=== PATIENT | female | born 1980 | race Caucasian/White ===

== ENCOUNTER 2018-09-25 16:35 | Emergency (ER) | payer MEDICARE ==
[~2018-09-25] VITALS: Ht 167.6 cm; Wt 68.0 kg
[2018-09-25] MEDS ORDERED: BACTRIM DS TAB1 EACH PO (17:17)
[2018-09-25] MEDS ORDERED: KEFLEX500 M1 PO (17:17)
[2018-09-25 17:36] VITALS: BP 121/68
== END 2018-09-25 17:37 | disposition home or self-care (01) ==
LOC: M.ERS 16:35
DX: L73.9 Follicular disorder, unspecified (principal); N76.2 Acute vulvitis; F41.9 Anxiety disorder, unspecified; F32.9 Major depressive disorder, single episode, unspecified; Z88.5 Allergy status to narcotic agent; Z88.1 Allergy status to other antibiotic agents

== ENCOUNTER 2019-02-19 01:38 | Inpatient (IN) | payer MEDICARE ==
[~2019-02-19] VITALS: Ht 167.6 cm; Wt 62.6 kg
[~2019-02-19 01:38] MED LIST: BACTRIM DS TAB1 EACH PO; KEFLEX500 M1 PO
[2019-02-19 01:39] VITALS: BP 111/63
[2019-02-19 02:23] LABS: ABSOLUTE LYMPHOCYTES 1.3 thou/uL (0.8-5.3); ABSOLUTE MONOCYTES 0.3 thou/uL (0.0-1.2); ABSOLUTE NEUTROPHILS 4.8 thou/uL (1.6-8.1); BASOPHILS 0.4 %; EOSINOPHILS 0.3 %; HEMATOCRIT 40.4 % (37.0-47.0); HEMOGLOBIN 13.7 gm/dL (12.0-15.0); LYMPHOCYTES 19.5 %; MCH 31.6 pg (26.0-34.0); MONOCYTES 4.4 %; MPV 8.8 fl. (7.2-11.1); NUCLEATED RBCS 0 /100WBC; PLATELET COUNT* 231 thou/uL (150-400); POLYS 75.4 %; RBC 4.34 mil/uL (4.20-5.00); RDW-CV 13.9 % (10.5-14.5); WBC 6.4 thou/uL (4.0-11.0)
[2019-02-19 02:28] LABS: URINE BILIRUBIN NEGATIVE (Negative); URINE BLOOD TRACE (Negative); URINE CLARITY CLEAR; URINE COLOR YELLOW; URINE GLUCOSE-RANDOM NEGATIVE (Negative); URINE KETONES NEGATIVE (Negative); URINE LEUKOCYTES-REFLEX NEGATIVE (Negative); URINE NITRITE-REFLEX NEGATIVE (Negative); URINE PROTEIN NEGATIVE (Negative); URINE UROBILINOGEN 0.2 E.U./dl (0.2-1.0)
[2019-02-19 02:31] LABS: ALBUMIN 3.6 g/dL (3.4-5.0); CALCIUM 9.1 mg/dL (8.5-10.1); CREATININE 0.9 mg/dL (0.6-1.3); POTASSIUM 4.3 mmol/L (3.5-5.1); TOTAL BILIRUBIN 0.3 mg/dL (<0.1-1.0); TOTAL PROTEIN 7.6 g/dL (6.4-8.2)
[2019-02-19 02:33] LABS: AMP/METHAMP Negative (Negative); BARBITURATES Negative (Negative); BENZODIAZEPINES Negative (Negative); COCAINE Negative (Negative); METHADONE Negative (Negative); OPIATES Negative (Negative); PCP Negative (Negative); THC POSITIVE (Negative)
[2019-02-19 08:45] VITALS: BP 92/54
--- NOTE | 2019-02-19 08:55 | NUR ---
PT TRAY PROVIDED FOR BREAKFAST
--- NOTE | 2019-02-19 12:07 | NUR ---
DC'D LT A/C IV PER PT REQUEST FOR COMFORT, RESTARTED IN RT HAND
[2019-02-19 12:45] VITALS: BP 105/51
--- NOTE | 2019-02-19 16:10 | NUR ---
PT TO MRI
[2019-02-19 16:15] VITALS: BP 100/55
[2019-02-19 18:42] VITALS: BP 106/57
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
[2019-02-20] VITALS (7 sets, daily range): BP systolic 95–113; BP diastolic 43–64
[2019-02-20 05:27] LABS: ABSOLUTE MONOCYTES 0.4 thou/uL (0.0-1.2); ABSOLUTE NEUTROPHILS 4.5 thou/uL (1.6-8.1); BASOPHILS 0.4 %; EOSINOPHILS 0.4 %; HEMATOCRIT 36.5 % (37.0-47.0); HEMOGLOBIN 12.5 gm/dL (12.0-15.0); LYMPHOCYTES 28.3 %; MCH 31.9 pg (26.0-34.0); MCHC 34.1 g/dL (28.0-37.0); MCV 93.4 fL (80.0-100.0); MONOCYTES 5.9 %; MPV 9.1 fl. (7.2-11.1); NUCLEATED RBCS 0 /100WBC; PLATELET COUNT* 190 thou/uL (150-400); RBC 3.91 mil/uL (4.20-5.00); RDW-CV 13.9 % (10.5-14.5); WBC 6.9 thou/uL (4.0-11.0)
--- NOTE | 2019-02-20 05:32 | NUR ---
SLEPT WELL TONIGHT. INDEPENDENT BRP WITH STEADY GAIT. NO SEIZURE ACTIVITY NOTED. TELEMETRY CONT TO SHOW SR. NO CHANGE IN ASSESSMENT. HS GOALS OF REST AND SAFETY ACHIEVED. HOURLY ROUNDING OBSERVED.
[2019-02-20 05:40] LABS: CALCIUM 8.6 mg/dL (8.5-10.1); CREATININE 0.8 mg/dL (0.6-1.3); POTASSIUM 3.4 mmol/L (3.5-5.1)
--- NOTE | 2019-02-20 10:03 | EKG ---
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1980 Requested By: Patricia Simon Order Number: [id number] Reading MD: Brennon Garcia Measurements Intervals Arma Rate: 66 P: -32 DE: 183 QRS: -12 QRSD: 83 T: 126 QT: 471 QTc: 494 Interpretive Statements Sinus rhythm Low voltage, extremity leads Nonspecific T abnormalities, lateral leads Borderline prolonged QT interval Baseline wander in lead(s) V3 No previous ECG available for comparison Electronically Signed On 02-20-2019 10:03:04 CDT by Brennon Garcia [email or web address] <ELECTRONICALLY SIGNED> By: Brennon Garcia MD, FAC 02/20/19 1003 [id number] [id number] Brennon Garcia MD, [facility] /EPI
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
[2019-02-20] MEDS ORDERED: ATIVAN0.5 MG PO (12:35)
[2019-02-20] MEDS ORDERED: SYNTHROID50 MCG PO (12:35)
--- NOTE | 2019-02-20 13:33 | NUR ---
PT D/C'D TO HOME. SPOKE WITH DR HOOK PT NOT TO DRIVE FOR 6 MONTHS. SHE IS TO DO FOLLOW-UP TESTING AT [facility].
--- NOTE | 2019-02-20 13:34 | NUR ---
PT D/C'D TO HOME. ALL CONSULTS OK WITH D/C. EDUCATION GIVEN RE FOLLOW-UPS. MEDICATIONS, AND DRS ORDERS. SCRIPTS GIVEN. PT TO FOLLOW UP AT [facility]. SIGNIFIFCANT OTHER AND PT TOLD NO DRIVING FOR 6 MONTHS. PT STATED SHE HAD NOT DRIVEN IN 10 YEARS. IV AND CARDIAC MONITER D/C'D. ALL BELONGINGS PACKED UP AND LEFT WITH PT ACCOMPANIED BY STAFF AND SIG OTHER.
[2019-02-20 14:11] LABS: THYROID PEROXIDASE (TPO) AB < 6 IU/mL (0-34)
--- NOTE | 2019-02-21 18:03 | CON ---
[address] [address] CONSULTATION Name: DEVEN BELLAMY Room: [address] IN M.R.#: [id number] Admission: 02/19/19 Attend Phys: Kurt Hale Discharge: 02/20/19 Date of : 78 Report #: [id number] THIS REPORT FOR: //name// CC: [facility] physician/PCP Danilo Perales DATE OF SERVICE: 02/19/2019 HISTORY OF PRESENT ILLNESS: This is a 38-year-old female patient who was evaluated by me for seizure. The patient indicates that she does not remember anything about the seizure. She indicates that she was sleeping and started having a seizure. It was witnessed by her significant other. The patient was confused after that. REVIEW OF SYSTEMS: Indicate that she has a history of anxiety. She said she gets panic attacks. She does not believe she was any more nervous than usual. She feels back to her baseline. She never had seizure before. She does not have any new medication, which has been prescribed to her. She does have some problem with thyroid. She does smoke cigarettes and marijuana. REVIEW OF SYSTEMS: She was not complaining of any new eye, ENT, cardiac, respiratory, GI, , musculoskeletal, constitutional, dermatological, hematological, psychiatric, throat or allergic symptom associated with present symptomatology. PAST MEDICAL HISTORY: Negative for seizure. FAMILY HISTORY: Negative for congenital epilepsy. SOCIAL HISTORY: She does not drink alcohol, but she smokes both cigarettes and marijuana. PHYSICAL EXAMINATION: Indicate she is nervous and anxious. She is alert, responsive, able to follow simple and complex command. Speech, concentration, fund of knowledge and memory is at her baseline. Cranial nerve examination 2-12 looks unremarkable. Neuromuscular examination is symmetrical. Full strength, sensation, reflexes and tone. Cardiac examination is unremarkable. Her pulses are palpable. No cardiac arrhythmias were noticed. Blood pressure is 92/54, respiration is 14, pulse is 61, temperature is 97.9. LABORATORY DATA: Her white count is normal and her TSH is very high. She did have a CT scan of the head, which appear unremarkable. IMPRESSION AND PLAN: The patient presents with a history of seizure. Her [place] [address] CONSULTATION Name: DEVEN BELLAMY Room: [address]#: [id number] Admission: 02/19/19 Attend Phys: Kurt Hale Discharge: 02/20/19 Date of : 78 Report #: [id number] I discussed the situation with the patient. I discussed with her that I do not know what the etiology of her symptom is and sometime we do not find any etiology. I discussed with her that I would like to get an MRI of the brain done. I would like to do it with and without contrast. I discussed the indication, potential complication, and alternatives in that regard. She wants to proceed with it. Her test is negative. We will get an EEG done. This patient will need seizure precaution for 6 months and she will not be able to drive during that time. All of it was discussed with the patient in detail. She understands that and she wants to follow this plan. <ELECTRONICALLY SIGNED> By: Elliott Lyons MD 02/21/19 1803 1255 [id number] Lyons MD /nt
--- NOTE | 2019-02-21 18:03 | EEG ---
[address] [address] EEG STUDY REPORT Name: DEVEN BELLAMY Room: [address] IN M.R.#: [id number] Admission: 02/19/19 Attend Phys: Kurt Hale Discharge: 02/20/19 Date of : 78 Report #: [id number] THIS REPORT FOR: //name// CC: [facility] physician/PCP Danilo Perales DATE OF SERVICE: 02/19/2019 This patient is being evaluated for seizure. EEG was done to evaluate that further. EEG was done by placing the electrode by standard 10-20 system of electrode placement. Both referential and sequential montages were used for recording. Background activity in this patient's EEG is about 10 Hz and 40 microvolt. The patient went to sleep and that was associated with bilateral slowing and vertex sharp waves. Photic stimulation was unremarkable. Throughout the record, no active epileptiform activity was noticed. IMPRESSION: EEG is masked by a lot of artifact. However, it does not appear to be showing any active epileptiform activity. Thank you very much for this referral. <ELECTRONICALLY SIGNED> By: Elliott Lyons MD 02/21/19 1803 1514 [id number] Lyons MD /nt
== END 2019-02-20 13:45 | disposition home or self-care (01) | DRG 101 ==
LOC: M.ERS 01:38 → M.TBA-ER 03:38 → M.2W 03:38
PROVIDERS: Emergency Medicine; Family Medicine; ADMIT Internal Medicine
DX: R56.9 Unspecified convulsions (principal); F41.9 Anxiety disorder, unspecified; F32.9 Major depressive disorder, single episode, unspecified; F43.10 Post-traumatic stress disorder, unspecified; F60.9 Personality disorder, unspecified; F17.210 Nicotine dependence, cigarettes, uncomplicated; I95.9 Hypotension, unspecified; E02 Subclinical iodine-deficiency hypothyroidism; Z88.5 Allergy status to narcotic agent; Z88.1 Allergy status to other antibiotic agents; Z79.899 Other long term (current) drug therapy

== ENCOUNTER 2019-04-19 06:00 | Inpatient (IN) | payer MEDICARE ==
[~2019-04-19] VITALS: Ht 167.6 cm; Wt 65.8 kg
[~2019-04-19 06:00] MED LIST changes: +ATIVAN0.5 MG PO; +SYNTHROID50 MCG PO
[2019-04-19 06:54] LABS: URINE BLOOD 3+ (Negative); URINE CLARITY CLEAR; URINE COLOR BROWN; URINE GLUCOSE-RANDOM NEGATIVE (Negative); URINE KETONES NEGATIVE (Negative); URINE PROTEIN 2+ (Negative); URINE SPECIFIC GRAVITY >= 1.030 (1.005-1.030); URINE UROBILINOGEN 0.2 E.U./dl (0.2-1.0)
[2019-04-19 06:56] LABS: ICTOTEST (BILI CONFIRMATORY) Negative (Negative); URINE BILIRUBIN 1+ (Negative); URINE LEUKOCYTES-REFLEX 2+ (Negative); URINE NITRITE-REFLEX POSITIVE (Negative)
[2019-04-19 07:10] LABS: ABSOLUTE LYMPHOCYTES 0.9 thou/uL (0.8-5.3); ABSOLUTE MONOCYTES 0.4 thou/uL (0.0-1.2); ABSOLUTE NEUTROPHILS 7.6 thou/uL (1.6-8.1); BASOPHILS 0.3 %; EOSINOPHILS 0.4 %; HEMATOCRIT 38.3 % (37.0-47.0); HEMOGLOBIN 12.8 gm/dL (12.0-15.0); LYMPHOCYTES 10.2 %; MCH 31.3 pg (26.0-34.0); MCHC 33.5 g/dL (28.0-37.0); MCV 93.4 fL (80.0-100.0); MONOCYTES 4.7 %; MPV 8.8 fl. (7.2-11.1); NUCLEATED RBCS 0 /100WBC; PLATELET COUNT* 195 thou/uL (150-400); POLYS 84.4 %; RDW-CV 13.5 % (10.5-14.5)
[2019-04-19 07:11] LABS: AMP/METHAMP Negative (Negative); BARBITURATES Negative (Negative); BENZODIAZEPINES Negative (Negative); COCAINE Negative (Negative); METHADONE Negative (Negative); OPIATES Negative (Negative); PCP Negative (Negative); THC POSITIVE (Negative)
[2019-04-19 07:13] LABS: MUCUS >6 Heavy strn/LPF (None Seen); URINE RBC >20 Many /HPF (0-2)
[2019-04-19 07:14] LABS: CASTS None Seen /LPF (None Seen); CRYSTALS None Seen /LPF (None Seen); SQUAMOUS >10 Many /LPF (0-3)
[2019-04-19 07:21] LABS: CALCIUM 8.1 mg/dL (8.5-10.1); CREATININE 0.8 mg/dL (0.6-1.3); POTASSIUM 3.8 mmol/L (3.5-5.1)
[2019-04-19 07:26] LABS: ALBUMIN 3.3 g/dL (3.4-5.0); MAGNESIUM 1.9 mg/dL (1.8-2.4); TOTAL BILIRUBIN 0.4 mg/dL (<0.1-1.0); TOTAL PROTEIN 7.3 g/dL (6.4-8.2)
[2019-04-19 09:58] VITALS: BP 98/61
[2019-04-19 16:30] VITALS: BP 109/52
--- NOTE | 2019-04-19 16:56 | 2DMMODE ---
[place] [address] 2 D/M-MODE ECHOCARDIOGRAM Name: JOSESITODEVEN M Room: [facility] ADM IN [facility]#: [id number] Admission: 04/19/19 Attend Phys: Sawyer Peoples MD Discharge: Date of : 78 Date of Service: 04/19/19 1656 Report #: [id number] THIS REPORT FOR: //name// APPROVED REPORT Study performed: 04/19/2019 15:42:18 EXAM: Comprehensive 2D, Doppler, and color-flow Echocardiogram Patient Location: In-Patient Room #: [facility] Status: routine BSA: 1.74 HR: 54 bpm BP: 98/61 mmHg Rhythm: NSR Other Information Study Quality: Good Indications seizures, aortic regurgitation 2D Dimensions IVSd: 9.25 (7-11mm) LVOT Diam: 23.11 (18-24mm) LVDd: 43.50 mm PWd: 9.76 (7-11mm) Ascending Ao: 32.98 (22-36mm) LVDs: 25.17 (25-40mm) Aortic Root: 33.35 mm Volumes Left Atrial Volume (Systole) LA ESV Index: 19.90 mL/m2 Aortic Valve AoV Peak Wyatt.: 1.67 m/s AO Peak Gr.: 11.13 mmHg LVOT Max P.69 mmHg AO Mean Gr.: 6.08 mmHg LVOT Mean P.70 mmHg LVOT Max V: 0.96 m/s AO V2 VTI: 36.35 cm LVOT Mean V: 0.59 m/s RODOLFO (VTI): 2.79 cm2 LVOT V1 VTI: 24.14 cm Mitral Valve E/A Ratio: 1.87 MV Decel. Time: 186.47 ms MV E Max Wyatt.: 1.01 m/[place] [address] 2 D/M-MODE ECHOCARDIOGRAM Name: DEVEN BELLAMY Room: [address] IN .R.#: [id number] Admission: 04/19/19 Attend Phys: Sawyer Peoples MD Discharge: Date of : 78 Date of Service: 04/19/19 1656 Report #: [id number] PHT: 54.08 ms MVA (PHT): 4.07 cm2 TDI E/Lateral E': 6.31 E/Medial E': 6.73 Medial E' Wyatt.: 0.15 m/s Lateral E' Wyatt.: 0.16 m/s Pulmonary Valve PV Peak Wyatt.: 0.82 m/s PV Peak Gr.: 2.68 mmHg Tricuspid Valve RAP Estimate: 5.00 mmHg TR Peak Gr.: 23.43 mmHg RVSP: 28.00 mmHg PA Pressure: 28.00 mmHg Left Ventricle The left ventricle is normal size. There is normal LV segmental wall motion. There is normal left ventricular wall thickness. Left ventricular systolic function is normal. LVEF is 60-65%. The left ventricular diastolic function is normal. Right Ventricle The right ventricle is normal size. The right ventricular systolic function is normal. Atria The left atrium size is normal. The right atrium size is normal. Aortic Valve The aortic valve is normal in structure. Moderate aortic regurgitation. There is no aortic valvular stenosis. Mitral Valve The mitral valve is normal in structure. Mild mitral regurgitation. No evidence of mitral valve stenosis. Tricuspid Valve The tricuspid valve is normal in structure. Trace tricuspid regurgitation. No pulmonary hypertension. Pulmonic Valve The pulmonary valve is normal in structure. There is no pulmonic [place] [address] 2 D/M-MODE ECHOCARDIOGRAM Name: DEVEN BELLAMY Room: [address] IN [facility]#: [id number] Admission: 04/19/19 Attend Phys: Sawyer Peoples MD Discharge: Date of : 78 Date of Service: 04/19/19 1656 Report #: [id number] Great Vessels The aortic root is normal in size. IVC is normal in size and collapses >50% with inspiration. Pericardium There is no pericardial effusion. <Conclusion> The left ventricle is normal size. There is normal left ventricular wall thickness. Left ventricular systolic function is normal. LVEF is 60-65%. The left ventricular diastolic function is normal. Moderate aortic regurgitation. Mild mitral regurgitation. Trace tricuspid regurgitation. No pulmonary hypertension. IVC is normal in size and collapses >50% with inspiration. <ELECTRONICALLY SIGNED> By: Kwame Sanders MD, FACC 04/19/19 1656 55 55 Kwame Sanders MD, FACC /INF
[2019-04-19 20:00] VITALS: BP 126/58
[2019-04-20] VITALS: BP 93/51
[2019-04-20 04:00] VITALS: BP 103/56
[2019-04-20 08:00] VITALS: BP 104/62
[2019-04-20 16:00] VITALS: BP 104/62
[2019-04-20 16:07] VITALS: BP 119/36
[2019-04-20] MEDS ORDERED: CEFDINIR300 MG PO (16:10)
--- NOTE | 2019-04-21 16:32 | CON ---
[address] [address] CONSULTATION Name: DEVEN BELLAMY Room: [address] IN .R.#: [id number] Admission: 04/19/19 Attend Phys: Sawyer Peoples MD Discharge: 04/20/19 Date of : 78 Report #: [id number] THIS REPORT FOR: //name// CC: [facility] physician/PCP Sawyer Peoples DATE OF SERVICE: 04/19/2019 NEUROLOGY CONSULTATION: HISTORY OF PRESENT ILLNESS: The patient is a 38-year-old female who was admitted after having an event at night. The patient was unable to describe the event. She did call her and I was able to speak with him while he was at work. He states that she woke him up with her shaking. When he looked at her, her eyes were rolled back in her head, but every now and then she would look at him and then her eyes would roll back in her head. She was tremulous. She had deep gasping breaths and would grind her teeth. She did not bite her tongue. The entire episode lasted approximately 5-7 minutes and this time she seemed to come around more quickly than the last time. The first time this happened, the event lasted for approximately 15 minutes. The patient came to the hospital, she had an EEG, this was unremarkable. No antiepileptic medication was given to the patient. The patient tells me she has been having difficulty with her thyroid. At one point, she had been on as much as 175 mcg of thyroid medication. She is now on 75 mcg as her dose is being adjusted. The patient also has a history of anxiety and at one point had been on Depakote and Lamictal for anxiety control. PAST MEDICAL HISTORY: Anxiety, obsessive compulsive disorder, posttraumatic stress disorder, personality disorder, hypothyroidism. PAST SURGICAL HISTORY: Unremarkable. MEDICATIONS: Lorazepam 0.5 mg p.r.n., levothyroxine 75 mcg daily. ALLERGIES: CODEINE AND LEVOFLOXACIN. PHYSICAL EXAMINATION: VITAL SIGNS: Temperature 37.1, pulse rate 88, respiratory rate 13, blood pressure 98/61, bedside pulse oximetry 96% on room air. LABORATORY DATA: Hematology: White blood cell count 9, hemoglobin 12.8, hematocrit 38.2, MCV 93.4, platelet count 195,000. Urinalysis 2+ protein, 3+ blood, 1+ bilirubin, nitrite positive, leukocyte esterase 2+. Chemistry: [place] [address] CONSULTATION Name: DEVEN BELLAMY Room: [address]#: [id number] Admission: 04/19/19 Attend Phys: Sawyer Peoples MD Discharge: 04/20/19 Date of : 78 Report #: [id number] Sodium 140, potassium 3.8, chloride 107, carbon dioxide 23, BUN 4, creatinine 0.8, glucose 100. Liver functions normal. TSH is 31. Free T4 of 1. Prolactin pending. Toxicology screen positive for marijuana. IMAGING STUDIES: CT and MRI head dated 02/19/2019 are both unremarkable and EEG dated 02/19/2019 was also unremarkable. NEUROLOGIC: Cranial nerves 2-12 are grossly intact. Motor exam demonstrates symmetrical strength in all 4 extremities with tone and bulk normal. Reflexes are trace throughout. Plantar responses are flexor. Coordination demonstrates no evidence of dysmetria. IMPRESSION: This patient has had 2 events at night. At this point, I am not going to begin an antiepileptic medication without the electroencephalogram. If the electroencephalogram is unremarkable, then I would recommend video monitoring. The closest location is most likely [facility] on the [place]. At this point, there is no reason to repeat the MRI head as this was just done less than 2 months ago. I thank you for your kind referral of this patient and will continue to follow her with you. <ELECTRONICALLY SIGNED> By: Keily Willis DO 04/21/19 1632 1241 [id number] Willis DO /nt
--- NOTE | 2019-04-21 16:33 | EEG ---
[address] [address] EEG STUDY REPORT Name: DEVEN BELLAMY Room: [address] IN .R.#: [id number] Admission: 04/19/19 Attend Phys: Sawyer Peoples MD Discharge: 04/20/19 Date of : 78 Report #: [id number] THIS REPORT FOR: //name// CC: Berenice Peoples DESCRIPTION: The record consists of symmetric moderate amplitude 10 cycles per second posterior dominant rhythm, which is poorly formed and obscured by low amplitude 20-25 cycles per second activity predominant over the central head region. Muscle artifact is also noted. Stage 1 sleep is characterized by attenuation of the background record. Photic stimulation is nonactivating. No focal abnormalities or epileptiform discharges are noted. IMPRESSION: This is a normal adult awake to stage I sleep record. No abnormalities or epileptiform discharges are noted. <ELECTRONICALLY SIGNED> By: Keily Willis DO 04/21/19 1633 1426 [id number] Willis DO /nt
== END 2019-04-20 17:00 | disposition home or self-care (01) | DRG 101 ==
LOC: M.ERS 06:00 → M.TBA-ER 06:31 → M.2W 06:31
PROVIDERS: Personal Emergency Response Attendant; ADMIT Family Medicine
DX: G40.909 Epilepsy, unspecified, not intractable, without status epilepticus (principal); N39.0 Urinary tract infection, site not specified; F41.9 Anxiety disorder, unspecified; F32.9 Major depressive disorder, single episode, unspecified; E03.9 Hypothyroidism, unspecified; F43.10 Post-traumatic stress disorder, unspecified; F17.210 Nicotine dependence, cigarettes, uncomplicated; X58.XXXA Exposure to other specified factors, initial encounter; Y93.89 Activity, other specified; Y92.89 Other specified places as the place of occurrence of the external cause; Y99.8 Other external cause status; Z88.6 Allergy status to analgesic agent; Z88.1 Allergy status to other antibiotic agents

== ENCOUNTER 2019-06-26 17:37 | Emergency (ER) | payer MEDICARE ==
[~2019-06-26] VITALS: Ht 167.6 cm; Wt 63.0 kg
[~2019-06-26 17:37] MED LIST changes: +CEFDINIR300 MG PO
[2019-06-26 18:22] LABS: HEMATOCRIT 41.9 % (37.0-47.0); HEMOGLOBIN 14.1 gm/dL (12.0-15.0); MCH 30.9 pg (26.0-34.0); MCHC 33.6 g/dL (28.0-37.0); MCV 92.1 fL (80.0-100.0); MPV 8.5 fl. (7.2-11.1); NUCLEATED RBCS 0 /100WBC; PLATELET COUNT* 240 thou/uL (150-400); RBC 4.56 mil/uL (4.20-5.00); RDW-CV 13.3 % (10.5-14.5)
[2019-06-26 18:27] LABS: CALCIUM 9.6 mg/dL (8.5-10.1); POTASSIUM 3.5 mmol/L (3.5-5.1)
[2019-06-26 18:38] LABS: ALBUMIN 3.5 g/dL (3.4-5.0); TOTAL BILIRUBIN 0.4 mg/dL (<0.1-1.0); TOTAL PROTEIN 7.5 g/dL (6.4-8.2)
[2019-06-26 19:01] LABS: ABSOLUTE MONOCYTES 0.4 thou/uL (0.0-1.2); ABSOLUTE NEUTROPHILS 11.6 thou/uL (1.6-8.1); PLATELET ESTIMATE ADEQUATE
[2019-06-26 19:25] VITALS: BP 118/83
== END 2019-06-26 19:27 | disposition home or self-care (01) ==
LOC: M.ERS 17:37
PROVIDERS: Family Medicine
DX: R56.9 Unspecified convulsions (principal); F32.9 Major depressive disorder, single episode, unspecified; F41.9 Anxiety disorder, unspecified; Z88.5 Allergy status to narcotic agent; Z88.1 Allergy status to other antibiotic agents